=== PATIENT | female | born 1940 | race Caucasian/White ===

== ENCOUNTER 2017-01-17 20:56 | Emergency (ER) | payer MEDICARE, OTHER ==
[2017-01-17] MEDS ORDERED: BABY ASPIRIN 81 MG CHEW PO ONE (22:59)
--- NOTE | 2017-01-17 23:05 | ERPHSYRPT ---
- History of Present Illness Time Seen by Provider: 01/17/17 22:59 Historian: patient Exam Limitations: no limitations Patient Subjective Stated Complaint: Pt sts pain in epigastrium after eating some salsa that broke her into a cold sweat. Sts had pain in epigastrium which has since resolved. Pt denies chest pain or shortness of breath at present. Sts feeling better at present but concerned because she is having symptoms similiar to her last heart attack. Triage Nursing Assessment: Pt alert, oriented, answers all questions appropriately. Skin p/w/d, resps non-labored. Pt ambulatory to tx room, steady gait noted. Lung sounds CTA bilat non-labored. SPO2 99% room air. Physician History: This is a 76-year-old white female with his history of IA which she states was discovered when she had a stress test in the distant past. Who states she has had a recent nuclear stress test in August of this year which was normal. Patient arrives with complaint of pain in her epigastric region which began at approximately 8:00 after eating salsa. Patient states that she has been having problems with pain in the epigastric region since being placed on doxycycline earlier this year. She states she is on Prilosec. She states she had her salsa she immediately began to have pain in the epigastric region associated with a cold sweat she had some nausea no shortness of breath. She states this persisted approximately 30 minutes and then went away. Patient is now without any pain she states she came to the hospital, she was worried that her symptoms were similar to her heart attack in the distant past. Past medical history includes high blood pressure, atherosclerotic coronary artery disease, myocardial infarction. Past surgical history includes skin cancer removed, cholecystectomy, hysterectomy, lumpectomy, and knee surgery. Social history patient denies tobacco alcohol or illicit drug use. Timing/Duration: today (8:00 this evening) Activities at Onset: other (eating salsa) Quality: aching Location: epigastric Chest Pain Radiation: no radiation Severity of Pain-Max: moderate Severity of Pain-Current: none Modifying Factors: Improves With: breathing, other (occurred with eating salsa) Associated Symptoms: nausea, other (diaphoresis) Prior Chest Pain/Cardiac Workup: stress test (patient with recent nuclear stress test which was normal) Nitro Today/Relief: no nitro taken today Aspirin Treatment Today: 81 mg x 4, provided by ED Hx Influenza Vaccination/Date Given: No Hx Pneumococcal Vaccination/Date Given: Yes - Review of Systems Constitutional: No Fever, No Chills Eyes: No Symptoms Ears, Nose, & Throat: No Symptoms Respiratory: No Cough, No Dyspnea Cardiac: No Chest Pain, No Edema, No Syncope Abdominal/Gastrointestinal: Abdominal Pain (epigastric pain), Nausea, No Vomiting, No Diarrhea Genitourinary Symptoms: No Dysuria Musculoskeletal: No Back Pain, No Neck Pain Skin: No Rash Neurological: No Dizziness, No Focal Weakness, No Sensory Changes Psychological: No Symptoms Endocrine: No Symptoms All Other Systems: Reviewed and Negative - Past Medical History Pertinent Past Medical History: Yes Cardiac History: Coronary Artery Disease, Hypertension (coronary disease high blood pressure) - Past Surgical History Gastrointestinal: Cholecystectomy Other Surgical History: hysterectomy lumpectomy, knee surgery - Social History Smoking Status: Never smoker Exposure to second hand smoke: No Patient Lives Alone: No - Nursing Vital Signs Nursing Vital Signs: Initial Vital Signs Temperature 97.8 F Temperature Source Oral Pulse Rate 85 Respiratory Rate 16 Blood Pressure [] 148/78 Pain Intensity 0 - Physical Exam General Appearance: no apparent distress, alert Eye Exam: PERRL/EOMI, eyes nml inspection Ears, Nose, Throat Exam: normal ENT inspection, moist mucous membranes Neck Exam: normal inspection, non-tender, supple, full range of motion Respiratory Exam: normal breath sounds, lungs clear, No respiratory distress Cardiovascular Exam: regular rate/rhythm, normal heart sounds Gastrointestinal/Abdomen Exam: soft, No tenderness, No mass Back Exam: normal inspection, No CVA tenderness, No vertebral tenderness Extremity Exam: normal inspection, normal range of motion Neurologic Exam: alert, oriented x 3, cooperative, normal mood/affect, sensation nml, No motor deficits Skin Exam: normal color, warm, dry SpO2 Interpretation: normal (98%) SpO2: 98 Oxygen Delivery: Room Air - Course Nursing assessment & vital signs reviewed: Yes EKG Interpreted by Me: RATE (any numbness little girl up85 bpm), Sinus Rhythm, NORMAL AXIS, Other (EKG, normal sinus rhythm, 85 bpm, normal EKG) - Radiology Exams Chest X-ray Interpretation: Interpreted by me, Negative, No Pneumonia, No Pneumothorax , Other (no acute disease process noted) Ordered Tests: Active Orders 24 hr Category Date Time Status EKG-ER Only STAT Care 01/17/17 22:59 Active IV Insertion STAT Care 01/17/17 22:59 Active CHEST 1 VIEW (PORTABLE) Stat Exams 01/17/17 22:59 Taken CBC W DIFF Stat Lab 01/17/17 23:22 Completed CMP Stat Lab 01/17/17 23:22 Completed TROPONIN Q3H Lab 01/17/17 23:22 Completed TROPONIN Q3H Lab 01/18/17 02:00 Ordered TROPONIN Q3H Lab 01/18/17 05:00 Ordered TROPONIN Q3H Lab 01/18/17 08:00 Ordered TROPONIN Q3H Lab 01/18/17 11:00 Ordered Medication Summary Discontinued Medications Generic Name Dose Route Start Last Admin Trade Name Jocelyn PRN Reason Stop Dose Admin Aspirin 324 mg 01/17/17 22:59 01/17/17 23:13 Baby Aspirin 81 Mg Chew PO 01/17/17 23:00 324 mg STAT ONE Administration Aspirin Confirm 01/17/17 23:12 Baby Aspirin 81 Mg Chew Administered 01/17/17 23:13 Dose 324 mg .ROUTE .STK-MED ONE Lab/Rad Data: Laboratory Result Diagrams 01/17/17 23:22 01/17/17 23:22 Laboratory Results 01/17/17 01/17/17 01/17/17 Range/Units 23:22 23:22 23:22 WBC 8.7 (4.0-10.5) K/mm3 RBC 4.55 (4.1-5.4) M/mm3 Hgb 14.0 (12.0-16.0) gm/dl Hct 43.0 (35-47) % MCV 94.5 (78-100) fl MCH 30.8 (26-32) pg MCHC 32.6 (32-36) g/dl RDW 12.7 (11.5-14.0) % Plt Count 210 (150-450) K/mm3 MPV 8.6 (6-9.5) fl Gran % 68.8 H (36.0-66.0) % Lymphocytes % 20.5 L (24.0-44.0) % Monocytes % 9.3 (0.0-12.0) % Eosinophils % 1.2 (0.00-5.0) % Basophils % 0.2 (0.0-0.4) % Basophils # 0.02 (0-0.4) Sodium 141 (136-145) mEq/L Potassium 3.6 (3.5-5.1) mEq/L Chloride 104 (98-107) mEq/L Carbon Dioxide 26.9 (21-32) mEq/L Anion Gap 13.7 (5-15) MEQ/L BUN 20 (9-20) mg/dL Creatinine 0.83 (0.55-1.30) mg/dl Estimated GFR > 60 ML/MIN Glucose 121 H (70-110) MG/DL Calcium 9.7 (8.5-10.1) mg/dL Total Bilirubin 0.50 (0.2-1.0) mg/dL AST 14 L (15-37) U/L ALT 21 (12-78) U/L Alkaline Phosphatase 85 (46-116) U/L Troponin I < 0.017 (0.000-0.056) ng/ml Serum Total Protein 7.4 (6.4-8.2) gm/dL Albumin 3.6 (3.4-5.0) g/dL - Progress Progress: improved Air Movement: fair Progress Note: 01/18/17 00:19 This is a 76-year-old white female who arrives with complaint of epigastric pain which occurred after eating salsa associated with nausea, patient described the pain as crampy it lasted about a half hour it occurred at 8:15. It was resolved when I saw the patient. Patient states that she has had a recent nuclear scan of her heart which was normal. Patient now is pain-free troponin had been drawn 3 hours after onset of the pain has been negative. EKG no acute changes other labs essentially normal. . Patient is pain-free at this time. I've offered to repeat troponin on this patient she states she really does not want to Will release.I have told the patient that I needed 2 sets of troponin to rule out cardiac etiology. 01/18/17 00:22 - Departure Time of Disposition: 00:23 Departure Disposition: Home Clinical Impression: Epigastric pain Condition: Fair Critical Care Time: No Instructions: Abdominal Pain-Adult Additional Instructions: Return home. Plenty of fluids clear fluids only 24 hours if abdominal pain. Avoid spicy foods. Follow-up with your family doctor. Return for acute distress or for severe symptoms.
[2017-01-17] MEDS ORDERED: BABY ASPIRIN 81 MG CHEW ONE (23:12)
[2017-01-17 23:25] LABS: BASOPHIL % 0.2 % (0.0-0.4); Eosinophil % 1.2 % (0.00-5.0); Granulocytes % 68.8 % (36.0-66.0); Lymphocytes % 20.5 % (24.0-44.0); Mean Cell Volume 94.5 fl (78-100); Mean Corpuscular Hemoglobin 30.8 pg (26-32); Mean Platelet Volume 8.6 fl (6-9.5); Monocytes % 9.3 % (0.0-12.0); Platelet Count 210 K/mm3 (150-450); Red Blood Count 4.55 M/mm3 (4.1-5.4); Red Cell Distribution Width 12.7 % (11.5-14.0); White Blood Count 8.7 K/mm3 (4.0-10.5)
[2017-01-17 23:43] LABS: ALBUMIN 3.6 g/dL (3.4-5.0); ALKALINE PHOSPHATASE 85 U/L (46-116); ANION GAP 13.7 MEQ/L (5-15); BLOOD UREA NITROGEN 20 mg/dL (9-20); CHLORIDE 104 mEq/L (98-107); Carbon Dioxide 26.9 mEq/L (21-32); Glucose 121 MG/DL (70-110); Potassium 3.6 mEq/L (3.5-5.1); SGOT/AST 14 U/L (15-37); SGPT/ALT 21 U/L (12-78); SODIUM 141 mEq/L (136-145); Total Protein 7.4 gm/dL (6.4-8.2)
[2017-01-18 00:36] VITALS: BP 135/77; PULSE 77; O2SAT 97
--- NOTE | 2017-01-18 18:46 | XRAY ---
Exam: AP portable chest film from 2308 hrs. on 01/17/2017. Comparison: Two-view chest from 11/09/2016. Indication: Epigastric and substernal chest pain, prior history of myocardial infarction. Findings: The radiograph has been obtained in a mildly lordotic projection. The transverse heart size is normal. Atherosclerotic calcification of the aortic knob and mild tortuosity of the descending thoracic aorta are seen. The radha and mediastinal structures appear unremarkable. There is a small wedge-shaped density at the medial right lung base which may represent some focal atelectasis. No definite airspace infiltrate is seen. No pulmonary vascular congestion, pneumothorax, or pleural fluid is seen. There is minimal air density projected adjacent to the left costovertebral angle which in retrospect is unchanged and could represent a minimal hiatal hernia. No acute osseous process is seen. Impression: 1. Small wedge-shaped opacity at the medial right lung base which may reflect segmental or subsegmental atelectasis. 2. No air space infiltrates or other acute cardiopulmonary disease is seen. 3. Equivocal evidence of a small hiatal hernia which I believe in retrospect is unchanged.
== END 2017-01-18 00:42 | disposition home or self-care (01) ==
LOC: ED 20:56
DX: R10.13 Epigastric pain (principal); R61 Generalized hyperhidrosis; R11.0 Nausea; I10 Essential (primary) hypertension; I25.10 Atherosclerotic heart disease of native coronary artery without angina pectoris; I25.2 Old myocardial infarction
CPT/HCPCS: 36000; 36415; 71010; 80053; 84484; 85025; 93005; 99284; 99285; A9270-GY

== ENCOUNTER 2017-01-31 05:45 | Day surgery (SDC) | payer MEDICARE, OTHER ==
[2017-01-31] MEDS ORDERED: Lactated Ringers 1,000 ML IV SCH (06:00)
[2017-01-31] MEDS ORDERED: Lactated Ringers 1,000 ML IV ONE (06:33)
[2017-01-31] MEDS ORDERED: DIPRIVAN 200 MG/20 ML IV ONE (08:00)
[2017-01-31] MEDS ORDERED: Ketamine HCl 50 MG/ML IV ONE (08:00)
[2017-01-31 09:03] VITALS: O2SAT 98
[2017-01-31 09:15] VITALS: BP 139/79; PULSE 65
--- NOTE | 2017-01-31 13:12 | OP ---
SURGERY DATE: 01/31/17 SURGERY TIME: 751 PREOPERATIVE DIAGNOSIS: 1. CHEST PAIN. 2. DYSPHAGIA. POSTOPERATIVE DIAGNOSIS: 1. MASS AT THE ESOPHAGOGASTRIC JUNCTION. PROCEDURE: 1. Esophagogastroduodenoscopy with biopsy. SURGEON: Dr. Cho. ANESTHESIA: MAC, medications given by the Anesthesia Department. BRIEF HISTORY: The patient is a 76 y/o WF who reports that she has been having epigastric pain and dysphagia after having taken doxycycline recently. She reported after taking doxycycline she had a bite of salsa which just put her into shock. She has been given sucralfate. Since that time, she has been having improvement in her symptoms. The patient was felt to need to have endoscopic evaluation. She was appraised of the risks of the procedure including the risk of perforation, phlebitis, untoward reaction to medication, bleeding, and missed lesions. The patient verbalized her understanding and desired to have the procedure performed. DESCRIPTION OF PROCEDURE: The patient was given the medications by the Anesthesia Department. She had continuous pulse oximetry, ECG monitoring, intermittent BP monitoring, and end tidal CO2 monitoring during the examination. She was placed in the left lateral decubitus position. A bite block was placed and the flexible Olympus gastroscope was used to intubate the oropharynx. A view of the larynx was obtained and showed a small nodule that appeared to be benign on the false vocal cords. The scope was passed in the esophagus with ease. It appeared to be normal to the esophagogastric junction where there appeared to be some blood present and an irregular mass. The scope was passed into the stomach where normal gastric rugal folds were otherwise seen. They distended nicely with the insufflation of air. The scope was passed along the greater curvature of the stomach to the antrum. The pylorus was encountered and intubated. The duodenum was inspected and found to be normal. The scope was withdrawn towards the stomach again. A retroflex view again identified the mass that appeared to be ulcerated in its center. Biopsies were obtained from the edges and was firm to biopsy. The scope was then removed from the patient who tolerated the procedure well and was sent back to outpatient recovery in good position. There was minimal bleeding noted with the biopsies. The patient was taken back to the recovery room in good condition.
== END 2017-01-31 09:25 | disposition home or self-care (01) ==
LOC: SDC 05:45
PROVIDERS: ATTEND Family Medicine
PROC: 0DB48ZX Excision of Esophagogastric Junction, Via Natural or Artificial Opening Endoscopic, Diagnostic (ICD-10-PCS; principal; 2017-01-31)
DX: K22.8 Other specified diseases of esophagus (principal); R13.10 Dysphagia, unspecified
CPT/HCPCS: 00740; 36415; 88305; 99100; J2704